=== PATIENT | female | born 1930 | race Caucasian/White ===

== ENCOUNTER → 2016-08-21 | Outpatient (CLI) | payer OTHER ==
[~2016-08-21] MED LIST: ASPCH81 PO; ATEN-173 PO; BENA1TAB53 PO; CALCTAB5 PO; CHOL100027 PO; CLN200 PO; CTP2 PO; FLNIN NAE; HYDC25 PO; MULT-506 PO; ULT50HP PO; WHEAPOW13 PO
--- NOTE | 2016-08-21 15:08 | MAMMOGRAPHY REPORT ---
BILATERAL DIGITAL SCREENING MAMMOGRAM WITH CAD: 08/21/2016 CLINICAL HISTORY: Routine screening. Patient has no complaints. TECHNIQUE: Current study was also evaluated with a Computer Aided Detection (CAD) system. Bilatera l CC and MLO views were obtained. COMPARISON: Comparison is made to exams dated: 08/15/2015 mammogram, 08/14/2014 mammogram, 08/23/2012 mammogram, 08/11/2012 mammogram, 08/07/2011 mammogram, and 08/05/2010 mammogram - [facility]. BREAST COMPOSITION: There are scattered areas of fibroglandular density in both breasts. FINDINGS: No suspicious masses, calcifications, or areas of architectural distortion are noted in e ither breast. There has been no significant interval change compared to prior exams. Bilateral cheryl gn-appearing calcifications are not significantly changed. A linear scar marker denotes a scar on t he left upper outer quadrant. IMPRESSION: ACR BI-RADS CATEGORY 2: BENIGN There is no mammographic evidence of malignancy. A 1 year screening mammogram is recommended. The p atient will receive written notification of the results. Approximately 10% of breast cancers are not detected with mammography. A negative mammographic repor t should not delay biopsy if a clinically suggestive mass is present. Diya Valdes M.D. /:08/21/2016 12:15:00 Band Ripsaw Operator: Lori Phillip, [facility] letter sent: Normal 1/2 BI-RADS Code: ACR BI-RADS Category 2: Benign
== END | disposition home or self-care (01) ==
LOC: C.MAMM 10:27
PROVIDERS: ATTEND Family Medicine
DX: Z12.31 Encounter for screening mammogram for malignant neoplasm of breast (principal)

== ENCOUNTER 2017-08-03 10:18 | Emergency (ER) | payer OTHER ==
[~2017-08-03] VITALS: Ht 152.4 cm; Wt 57.6 kg
[2017-08-03 10:38] VITALS: TEMP 37.3; Ht 152.4 cm; Wt 57.6 kg
[2017-08-03] MEDS ORDERED: FLUT0.15 NAE (11:06)
[2017-08-03] MEDS ORDERED: HYDR25TA4 PO (11:06)
[2017-08-03] MEDS ORDERED: ATEN-173 PO (11:06)
[2017-08-03] MEDS ORDERED: MULT1TAB22 PO (11:06)
[2017-08-03] MEDS ORDERED: CALC-393 PO (11:06)
[2017-08-03] MEDS ORDERED: BENA1TAB53 PO (11:06)
[2017-08-03] MEDS ORDERED: MAGN200T3 PO (11:06)
[2017-08-03] MEDS ORDERED: CTP/1 PO (11:06)
[2017-08-03] MEDS ORDERED: TRAM-10 PO (11:06)
[2017-08-03] MEDS ORDERED: CHOL100010 PO (11:06)
[2017-08-03] MEDS ORDERED: ASPI81TA28 PO (11:06)
[2017-08-03 11:20] VITALS: O2SAT 97
[2017-08-03] MEDS ORDERED: SODIUM CHLORIDE 0.9% 500ML 500 ML IV STA (11:20)
--- NOTE | 2017-08-03 11:20 | EMERGENCY ROOM VISIT NOTE ---
History Report prepared by Michi: Armando Randhawa Under the Supervision of: Dr. Jose Roberto Clemens M.D. First contact with patient: 11:03 Chief Complaint: OTHER COMPLAINT Stated Complaint: POOR COLOR, FEELING OUT OF IT, SLEEPINESS, LEG RAMAN History of Present Illness The patient is an 87 year old white female with a past medical history of hypertension and osteoporosis who presents to the Emergency Room with complaints of worsening confusion that she notes has been progressively increasing for the past month. The patient was having a difficult time expressing her symptoms but notes "I am not thinking properly." Her niece at bedside notes that her "color was really bad this past weekend," and is not herself recently. She does not have any chest pain or shortness of breath. The patient did receive a shot for her Osteoporosis recently. She was started on Lexapro recently as well, for depression. Source of History: patient Onset: 1 month Position: head Quality: other (confusion) Timing: worsening Associated Symptoms: No chest pain, No SOB Review of Systems See HPI for pertinent positives and negatives. A total of ten systems were reviewed and were otherwise negative. Past Medical & Surgical Medical Problems: (1) Hypertension Family History Diabetes mellitus Heart disease Hypertension Social History Smoking Status: Former Smoker Alcohol Use: none Drug Use: none Housing Status: lives alone Occupation Status: retired Current/Historical Medications Scheduled Aspirin (Aspirin Ec), 81 MG PO DAILY Atenolol (Tenormin), 25 MG PO DAILY Benazepril (Lotensin), 40 MG PO BID Calcium Carbonate (Calcium), 600 MG PO BID Cholecalciferol (Vitamin D), 1,000 UNITS PO DAILY Clonidine Hcl (Catapres), 0.1 MG PO DAILY Fluticasone Propionate (Nasal) (Flonase Allergy Relief), 2 SPRAY JOSE MARTIN DAILY Hydrochlorothiazide (Hctz), 25 MG PO DAILY Magnesium (Magnesium), 200 MG PO DAILY Multiple Vitamins W/ Minerals (One Daily For Women), 1 TAB PO DAILY Scheduled PRN Tramadol (Ultram), 50 MG PO Q6 PRN for Pain Allergies Coded Allergies: Sulfa Drugs (Verified Allergy, Intermediate, RASH, 10/22/14) Propoxyphene (Verified Adverse Reaction, Mild, RETAIN FLUID, 10/22/14) Physical Exam Vital Signs Date Time Temp Pulse Resp B/P (MAP) Pulse Ox O2 Delivery O2 Flow Rate FiO2 08/03/17 14:03 58 18 171/81 96 Room Air 08/03/17 13:18 56 18 164/87 95 Room Air 08/03/17 12:23 57 08/03/17 11:20 97 Room Air 08/03/17 10:38 37.3 54 18 161/82 95 Room Air Physical Exam GENERAL: Awake, alert, well-appearing, NAD, appears stated age, wearing glasses. HENT: Normocephalic, atraumatic. EYES: Normal conjunctiva. Sclera non-icteric. NECK: Supple. No nuchal rigidity. FROM. RESPIRATORY: CTAB, no rhonchi, wheezing, crackles CARDIAC: RRR, no MRG ABDOMEN: Soft, NTND, BS+ MSK: No chest wall TTP, no LE edema NEURO: CN 2-12 intact, 5/5 upper and lower extremity strength, no dysmetria, no drift, good finger to nose, no sensory deficits. Finger count grossly normal. PERRL. Negative Romberg SKIN: No rash or jaundice noted. Medical Decision & Procedures ER Provider Diagnostic Interpretation: Radiology results as stated below per my review and radiologist interpretation: CHEST ONE VIEW PORTABLE CLINICAL HISTORY: EVALUATE WEAKNESS COMPARISON STUDY: Chest radiograph October 22, 2014. 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 Mild cardiomegaly is noted without evidence for pulmonary edema. No consolidation. Linear left basilar opacity suggestive atelectasis. IMPRESSION: No acute cardiopulmonary findings. Electronically signed by: Nick Quintanilla M.D. 08/03/2017 11:38 AM Dictated Date/Time: 08/03/2017 11:37 AM HEAD WITHOUT CONTRAST (CT) CLINICAL HISTORY: 87 years-old Female with EVALUATE WEAKNESS. Acute weakness TECHNIQUE: Multiple axial CT images of the head were obtained without contrast. A dose lowering technique was utilized adhering to the principles of ALARA. CT DOSE: 537.48 mGy.cm COMPARISON: CT head 10/22/2014. FINDINGS: No acute intracranial hemorrhage, midline shift, intracranial mass, hydrocephalus, territorial ischemia or abnormal extra-axial collection. Mild atrophy. 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 Ill-defined areas of low-attenuation within the periventricular white matter suggest chronic microvascular ischemic changes. Cerebral vascular calcifications are seen at the level of the skull base. The calvarium is intact. The paranasal sinuses, mastoid air cells, and middle ear cavities are clear. IMPRESSION: No acute intracranial abnormality. The above report was generated using voice recognition software. It may contain grammatical, syntax or spelling errors. Electronically signed by: Jourdan Traylor M.D. 08/03/2017 11:59 AM Dictated Date/Time: 08/03/2017 11:55 AM Laboratory Results 08/03/17 11:30 Red Blood Count 3.92, Mean Corpuscular Volume 91.1, Mean Corpuscular Hemoglobin 32.1, Mean Corpuscular Hemoglobin Concent 35.3, Mean Platelet Volume 10.1, Neutrophils (%) (Auto) 77.0, Lymphocytes (%) (Auto) 15.6, Monocytes (%) (Auto) 6.5, Eosinophils (%) (Auto) 0.6, Basophils (%) (Auto) 0.2, Neutrophils # (Auto) 6.58, Lymphocytes # (Auto) 1.33, Monocytes # (Auto) 0.56, Eosinophils # (Auto) 0.05, Basophils # (Auto) 0.02 08/03/17 11:30 Test 08/03/17 11:30 08/03/17 12:22 White Blood Count 8.55 K/uL (4.8-10.8) Red Blood Count 3.92 M/uL (4.2-5.4) Hemoglobin 12.6 g/dL (12.0-16.0) Hematocrit 35.7 % (37-47) Mean Corpuscular Volume 91.1 fL (80-100) Mean Corpuscular Hemoglobin 32.1 pg (25-34) Mean Corpuscular Hemoglobin Concent 35.3 g/dl (32-36) Platelet Count 177 K/uL (130-400) Mean Platelet Volume 10.1 fL (7.4-10.4) Neutrophils (%) (Auto) 77.0 % Lymphocytes (%) (Auto) 15.6 % Monocytes (%) (Auto) 6.5 % Eosinophils (%) (Auto) 0.6 % Basophils (%) (Auto) 0.2 % Neutrophils # (Auto) 6.58 K/uL (1.4-6.5) Lymphocytes # (Auto) 1.33 K/uL (1.2-3.4) Monocytes # (Auto) 0.56 K/uL (0.11-0.59) Eosinophils # (Auto) 0.05 K/uL (0-0.5) Basophils # (Auto) 0.02 K/uL (0-0.2) RDW Standard Deviation 43.0 fL (36.4-46.3) RDW Coefficient of Variation 13.0 % (11.5-14.5) Immature Granulocyte % (Auto) 0.1 % Immature Granulocyte # (Auto) 0.01 K/uL (0.00-0.02) Prothrombin Time 10.0 SECONDS (9.0-12.0) Prothromb Time International Ratio 1.0 (0.9-1.1) Activated Partial Thromboplast Time 28.2 SECONDS (21.0-31.0) Partial Thromboplastin Ratio 1.1 Anion Gap 7.0 mmol/L (3-11) Est Creatinine Clear Calc Drug Dose 37.9 ml/min Estimated GFR () 73.5 Estimated GFR (Non- 63.4 BUN/Creatinine Ratio 19.9 (10-20) Calcium Level 9.3 mg/dl (8.5-10.1) Magnesium Level 1.6 mg/dl (1.8-2.4) Total Bilirubin 0.3 mg/dl (0.2-1) Direct Bilirubin < 0.1 mg/dl (0-0.2) Aspartate Amino Transf (AST/SGOT) 11 U/L (15-37) Alanine Aminotransferase (ALT/SGPT) 17 U/L (12-78) Alkaline Phosphatase 47 U/L (45-117) Troponin I < 0.015 ng/ml (0-0.045) Total Protein 7.4 gm/dl (6.4-8.2) Albumin 3.6 gm/dl (3.4-5.0) Lipase 185 U/L (73-393) Thyroid Stimulating Hormone (TSH) 0.862 uIu/ml (0.300-4.500) Lyme Disease IgG Antibody NEG (NEG) Urine Color YELLOW Urine Appearance CLEAR (CLEAR) Urine pH 7.5 (4.5-7.5) Urine Specific Perkins 1.008 (1.000-1.030) Urine Protein NEG (NEG) Urine Glucose (UA) NEG (NEG) Urine Ketones NEG (NEG) Urine Occult Blood NEG (NEG) Urine Nitrite NEG (NEG) Urine Bilirubin NEG (NEG) Urine Urobilinogen NEG (NEG) Urine Leukocyte Esterase NEG (NEG) Laboratory results reviewed by me Medications Administered Medications (Trade) Dose Ordered Sig/Eyad Route Start Time Stop Time Status Last Admin Dose Admin Sodium Chloride 500 ml @ 500 mls/hr Q1H STAT IV 08/03/17 11:20 08/03/17 12:19 DC 08/03/17 11:20 500 MLS/HR ECG Per My Interpretation Indication: altered mental status Rate (beats per minute): 53 Rhythm: sinus bradycardia Findings: 1st degree AV block, other (Normal Delta) ED Course 1111: The patient was evaluated in room C2. A complete history and physical exam was performed. 1332: I reevaluated the patient. Discussed results and discharge instructions: She verbalized understanding and agreement. The patient is ready for discharge. Medical Decision The patient is an 87 year old white female with a past medical history of hypertension and osteoporosis who presents to the Emergency Room with complaints of worsening confusion that she notes has been progressively increasing for the past month. Nursing notes reviewed. Ancillary studies and prior records reviewed. Differential diagnosis: Etiologies such as metabolic, infection, hypo/hyperglycemia, electrolyte abnormalities, cardiac sources, intracerebral event, toxicologic, neurologic, as well as others were entertained. Patient was seen and evaluated the bedside. Patient presents with approximately 1 month of worsening confusion. Patient states that her head just does not feel right. Patient denies any focal numbness, tingling, or weakness. Patient is a and O 3 with a GCS of 15 and has a nonfocal neurologic exam. Patient did have blood work completed, EKG, troponin, chest x-ray, CT of the brain. Patient's blood work is fairly unremarkable. A Lyme's test is also tested which was equivocal and was sent off for further eval. Patient CT the brain was negative acute. Chest x-ray clear. Troponin negative. Patient does not have any metabolic reasons for her questionable confusion. The patient was told that she should follow-up with her PCP for further cognitive testing. We discussed that this may be dementia or age-related change. This may also be medication side effect. I also discussed that the Lyme's may also be possible. Patient was deemed suitable for outpatient follow-up treatment at this time. Patient was given strict follow-up, discharge, and return precautions. All questions were answered. Patient was deemed suitable for outpatient follow-up at this time. Patient agreed with the plan of care and was safely discharged home. Medication Reconcilliation Current Medication List: was personally reviewed by me Blood Pressure Screening Patient's blood pressure: Elevated blood pressure Blood pressure disposition: Referred to PCP Impression Primary Impression: Confusion Scribe Attestation The scribe's documentation has been prepared under my direction and personally reviewed by me in its entirety. I confirm that the note above accurately reflects all work, treatment, procedures, and medical decision making performed by me. Departure Information Dispostion Home / Self-Care Referrals Gene Shane M.D. (PCP) Patient Instructions ED Confusion, My [facility] Additional Instructions Please return to the emergency department if you have worsening or recurrent symptoms not amenable to at-home treatment. Please call for a follow-up appointment with her primary care physician. Please take your medications as prescribed. If you have other concerns and/or complaints please feel free to also call your primary care physician's office or return the ED for further evaluation, management, and treatment. Please follow-up with your PCP to discuss further cognitive testing and/or treatment. Take your medications as prescribed. You have been examined and treated today on an emergency basis only. This is not a substitute for, or an effort to provide, complete comprehensive medical care. It is impossible to recognize and treat all injuries or illnesses in a single emergency department visit. It is therefore important that you follow up closely with [facility], your PCP, and/or your specialist(s). Call as soon as possible for an appointment. Thank you for your time and consideration. I look forward to speaking with you again soon. Please don't hesitate to call us if you have any questions.
--- NOTE | 2017-08-03 11:39 | DIAGNOSTIC IMAGING REPORT ---
CHEST ONE VIEW PORTABLE CLINICAL HISTORY: EVALUATE WEAKNESS COMPARISON STUDY: Chest radiograph October 22, 2014. 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 Mild cardiomegaly is noted without evidence for pulmonary edema. No consolidation. Linear left basilar opacity suggestive atelectasis. IMPRESSION: No acute cardiopulmonary findings. Electronically signed by: Nick Quintanilla M.D. 08/03/2017 11:38 AM Dictated Date/Time: 08/03/2017 11:37 AM
[2017-08-03 11:42] LABS: BASO % 0.2 %; BASO ABS # 0.02 K/uL (0-0.2); EOS % 0.6 %; EOS ABS # 0.05 K/uL (0-0.5); HEMATOCRIT 35.7 % (37-47); HEMOGLOBIN 12.6 g/dL (12.0-16.0); IG# 0.01 K/uL (0.00-0.02); LYMPH % 15.6 %; LYMPH ABS # 1.33 K/uL (1.2-3.4); MEAN CELL VOLUME 91.1 fL (80-100); MEAN CORPUSCULAR HEMOGLOBIN 32.1 pg (25-34); MEAN CORPUSCULAR HGB CONC 35.3 g/dl (32-36); MEAN PLATELET VOLUME 10.1 fL (7.4-10.4); MONO % 6.5 %; MONO ABS # 0.56 K/uL (0.11-0.59); NEUT ABS # 6.58 K/uL (1.4-6.5); PLATELET COUNT 177 K/uL (130-400); WHITE BLOOD COUNT 8.55 K/uL (4.8-10.8)
[2017-08-03 11:50] LABS: PTT PATIENT 28.2 SECONDS (21.0-31.0)
[2017-08-03 11:55] LABS: ALBUMIN 3.6 gm/dl (3.4-5.0); ALT/SGPT 17 U/L (12-78); AST/SGOT 11 U/L (15-37); BLOOD UREA NITROGEN 16 mg/dl (7-18); CALCIUM 9.3 mg/dl (8.5-10.1); CARBON DIOXIDE 28 mmol/L (21-32); CREATININE 0.83 mg/dl (0.60-1.20); GLUCOSE 103 mg/dl (70-99); LIPASE 185 U/L (73-393); POTASSIUM 3.7 mmol/L (3.5-5.1); SODIUM 130 mmol/L (136-145)
--- NOTE | 2017-08-03 12:00 | DIAGNOSTIC IMAGING REPORT ---
HEAD WITHOUT CONTRAST (CT) CLINICAL HISTORY: 87 years-old Female with EVALUATE WEAKNESS. Acute weakness TECHNIQUE: Multiple axial CT images of the head were obtained without contrast. A dose lowering technique was utilized adhering to the principles of ALARA. CT DOSE: 537.48 mGy.cm COMPARISON: CT head 10/22/2014. FINDINGS: No acute intracranial hemorrhage, midline shift, intracranial mass, hydrocephalus, territorial ischemia or abnormal extra-axial collection. Mild atrophy. 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 Ill-defined areas of low-attenuation within the periventricular white matter suggest chronic microvascular ischemic changes. Cerebral vascular calcifications are seen at the level of the skull base. The calvarium is intact. The paranasal sinuses, mastoid air cells, and middle ear cavities are clear. IMPRESSION: No acute intracranial abnormality. The above report was generated using voice recognition software. It may contain grammatical, syntax or spelling errors. Electronically signed by: Jourdan Traylor M.D. 08/03/2017 11:59 AM Dictated Date/Time: 08/03/2017 11:55 AM
[2017-08-03 12:06] LABS: ALKALINE PHOSPHATASE 47 U/L (45-117); TOTAL PROTEIN 7.4 gm/dl (6.4-8.2)
[2017-08-03 14:03] VITALS: BP 171/81; PULSE 58; O2SAT 96
== END 2017-08-03 14:30 | disposition home or self-care (01) ==
LOC: C.EDB 10:21 → C.EDC 14:30
DX: R41.0 Disorientation, unspecified (principal); I10 Essential (primary) hypertension; Z79.899 Other long term (current) drug therapy; Z88.8 Allergy status to other drugs, medicaments and biological substances; Z87.891 Personal history of nicotine dependence

== ENCOUNTER → 2017-08-27 | Outpatient (CLI) | payer OTHER ==
[~2017-08-27] MED LIST changes: -ASPCH81 PO; +ASPI81TA28 PO; +CALC-393 PO; -CALCTAB5 PO; +CHOL100010 PO; -CHOL100027 PO; -CLN200 PO; +CTP/1 PO; -CTP2 PO; -FLNIN NAE; +FLUT0.15 NAE; -HYDC25 PO; +HYDR25TA4 PO; +MAGN200T3 PO; -MULT-506 PO; +MULT1TAB22 PO; +TRAM-10 PO; -ULT50HP PO; -WHEAPOW13 PO
--- NOTE | 2017-08-27 12:40 | MAMMOGRAPHY REPORT ---
BILATERAL DIGITAL SCREENING MAMMOGRAM TOMOSYNTHESIS WITH CAD: 08/27/2017 CLINICAL HISTORY: Routine screening. Patient has no complaints. TECHNIQUE: Breast tomosynthesis in addition to standard 2D mammography was performed. Current study was also evaluated with a Computer Aided Detection (CAD) system. COMPARISON: Comparison is made to exams dated: 08/21/2016 mammogram, 08/15/2015 mammogram, 08/14/2014 m ammogram, 08/12/2013 mammogram, 08/23/2012 mammogram, and 08/11/2012 mammogram - [facility]. BREAST COMPOSITION: There are scattered areas of fibroglandular density in both breasts. FINDINGS: No suspicious masses, calcifications, or areas of architectural distortion are noted in ei ther breast. There has been no significant interval change compared to prior exams. Bilateral benig n-appearing calcifications are not significantly changed. A linear scar marker denotes a scar on the left upper outer quadrant. IMPRESSION: ACR BI-RADS CATEGORY 2: BENIGN There is no mammographic evidence of malignancy. A 1 year screening mammogram is recommended. The pa tient will receive written notification of the results. Approximately 10% of breast cancers are not detected with mammography. A negative mammographic report should not delay biopsy if a clinically suggestive mass is present. Diya Valdes M.D. /:08/27/2017 12:22:14 Resource Development Manager: Lori Phillip, [facility] letter sent: Normal 1/2 BI-RADS Code: ACR BI-RADS Category 2: Benign
== END | disposition home or self-care (01) ==
LOC: C.MAMM 10:44
PROVIDERS: ATTEND Family Medicine
DX: Z12.31 Encounter for screening mammogram for malignant neoplasm of breast (principal)